=== PATIENT | female | born 1965 | race Two or more races ===

== ENCOUNTER 2021-02-21 08:48 | Emergency (ER) | payer SELFPAY ==
[2021-02-21] MEDS ORDERED: Sodium Chloride 0.9% 2.5 ML Syringe FLUSH PRN (09:04)
[2021-02-21] MEDS ORDERED: Sodium Chloride 0.9% 10 ML Syringe FLUSH PRN (09:04)
[2021-02-21] MEDS ORDERED: Sodium Chloride 0.9% 1,000 ML IV ONE (09:05)
--- NOTE | 2021-02-21 09:25 | EDM.PDOC ---
ED HPI GENERAL MEDICAL PROBLEM - General Chief Complaint: General Stated Complaint: BP LIGHT HEADED Time Seen by Provider: 02/21/21 09:08 - History of Present Illness INITIAL COMMENTS - FREE TEXT/NARRATIVE: History of present illness: [] This patient is a bifrontal headache with radiation down the neck into the shoulders. Its moderately severe in onset was 10 days ago. She has lived in this country for 2 months with her daughter. She is from [place]. The daughter says there is no real change in her social situation stress diet or other habits. The mother says she has had migraines in the past but they usually go away within the first 72 hours. No associated nausea vomiting photophobia. The headache she is having is similar to her usual migraines and has insidious onset and gradual exacerbation. It is actually worse as she goes through the day rather than when she wakens. The moved to [place] was a good one because she finally got her paperwork so that she could move and join her daughter. The patient however is stressed for the last 2 weeks because of things that are happening politically improved and the danger to her family that is back there. Review of systems: As per history of present illness and below otherwise all systems reviewed and negative. Past medical history: As per history of present illness and as reviewed below otherwise noncontributory. Surgical history: As per history of present illness and as reviewed below otherwise noncontributory. Social history: No reported history of drug or alcohol abuse. Family history: As per history of present illness and as reviewed below otherwise noncontributory. Physical exam: Constitutional - well developed, well-nourished and in no acute distress HEENT - normocephalic, no evidence of trauma - external nose and mouth normal - no mass in neck and no JVD - mucosae moist. Neck supple EYES - full EOM, PERRL, no icterus - no evidence of inflammation, injection, or drainage Respiratory - no respiratory distress, equal bilateral expansion, lungs clear to auscultation and no abnormal lung sounds Cardiovascular - Regular Rhythm with S1 and S2 appreciated and no murmur, gallop or rub. GI - abdomen soft without distension or organomegaly - normal bowel sounds - no guard or rebound Musculoskeletal no gross deformity of long bones or joints - no tenderness, swelling or edema Neurologic - Alert and oriented times four - CN II-XII grossly intact - motor sensory and coordination symmetrically normal Psychiatric - appropriate mood and affect with normal thought content Hematologic - No petechiae or purpura - mucosa appropriate color and sclera not pale - normal nail bed color and refill Integument - no rash or evidence of trauma - normal turgor Diagnostics: [] Therapeutics: [] Impression: [] Plan: [] Definitive disposition and diagnosis as appropriate pending reevaluation and review of above. 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: Other POLICE LIAISON OFFICER History: hysterectomy Musculoskeletal History: Reports: None Neurological History: Reports: Migraines Psychiatric History: Reports: None Endocrine/Metabolic History: Reports: None Hematologic History: Reports: None Immunologic History: Reports: None Oncologic (Cancer) History: Reports: None Dermatologic History: Reports: None - Infectious Disease History Infectious Disease History: Reports: None - Past Surgical History Head Surgeries/Procedures: Reports: None Social & Family History - Family History Family Medical History: No Pertinent Family History - Tobacco Use Tobacco Use Status *Q: Never Tobacco User Second Hand Smoke Exposure: No - Caffeine Use Caffeine Use: Reports: None - Recreational Drug Use Recreational Drug Use: No ED ROS GENERAL - Review of Systems Review Of Systems: Comprehensive ROS is negative, except as noted in HPI. ED EXAM, GENERAL - Physical Exam Exam: See Below Free Text/Narrative:: My physical exam is in the HPI #1 Interpretation EKG Interpretation Comments: KG done at 1921 at 9:19 AM sinus rhythm heart rate 81 CO interval 137 QT duration 407 axis -68 there are Q waves in inferior leads and there is a late transition R wave with acute on the initial V1. ST and T are normal. There is no prior for comparison. Impression this is not convincing for any acute isc hemia or injury. Course - Vital Signs Last Recorded V/S: Last Vital Signs Temp 37.5 C 02/21/21 08:52 Pulse 80 02/21/21 10:44 Resp 18 02/21/21 10:44 BP 112/62 02/21/21 10:44 Pulse Ox 97 02/21/21 10:44 - Orders/Labs/Meds Orders: Active Orders 24 hr Category Date Time Status Sodium Chloride 0.9% [Saline Flush] Med 02/21/21 09:04 Active 10 ml FLUSH ASDIRECTED PRN Sodium Chloride 0.9% [Saline Flush] Med 02/21/21 09:04 Active 2.5 ml FLUSH ASDIRECTED PRN Saline Lock Insert [OM.PC] Stat Oth 02/21/21 09:04 Ordered Medication Orders Sodium Chloride (Sodium Chloride 0.9% 10 Ml Syringe) 10 ml FLUSH ASDIRECTED PRN PRN Reason: Keep Vein Open Last Admin: 02/21/21 09:10 Dose: 10 ml Documented by: MIKAL Sodium Chloride (Sodium Chloride 0.9% 2.5 Ml Syringe) 2.5 ml FLUSH ASDIRECTED PRN PRN Reason: Keep Vein Open Last Admin: 02/21/21 09:09 Dose: 2.5 ml Documented by: MIKAL Labs: Laboratory Tests 02/21/21 02/21/21 02/21/21 Range/Units 09:04 09:04 09:15 WBC 5.55 (4.0-11.0) K/uL RBC 4.52 (4.30-5.90) M/uL Hgb 14.0 (12.0-16.0) g/dL Hct 41.1 (36.0-46.0) % MCV 90.9 (80.0-98.0) fL MCH 31.0 (27.0-32.0) pg MCHC 34.1 (31.0-37.0) g/dL RDW Std Deviation 43.1 (28.0-62.0) fl RDW Coeff of Alem 13 (11.0-15.0) % Plt Count 205 (150-400) K/uL MPV 10.30 (7.40-12.00) fL Neut % (Auto) 58.8 (48.0-80.0) % Lymph % (Auto) 27.0 (16.0-40.0) % [place] % (Auto) 13.3 (0.0-15.0) % Eos % (Auto) 0.4 (0.0-7.0) % Baso % (Auto) 0.5 (0.0-1.5) % Neut # (Auto) 3.3 (1.4-5.7) K/uL Lymph # (Auto) 1.5 (0.6-2.4) K/uL [place] # (Auto) 0.7 (0.0-0.8) K/uL Eos # (Auto) 0.0 (0.0-0.7) K/uL Baso # (Auto) 0.0 (0.0-0.1) K/uL Nucleated RBC % 0.0 /100WBC Nucleated RBCs # 0 K/uL Sodium 133 L (136-145) mmol/L Potassium 3.8 (3.5-5.1) mmol/L Chloride 100 (98-107) mmol/L Carbon Dioxide 28.5 (21.0-32.0) mmol/L BUN 11 (7.0-18.0) mg/dL Creatinine 0.8 (0.6-1.0) mg/dL Est Cr Clr Drug Dosing 57.07 mL/min Estimated GFR (MDRD) > 60.0 ml/min Glucose 93 (74-106) mg/dL Calcium 8.6 (8.5-10.1) mg/dL Total Bilirubin 0.9 (0.2-1.0) mg/dL AST 31 (15-37) IU/L ALT 37 (14-63) IU/L Alkaline Phosphatase 100 (46-116) U/L Troponin I < 0.050 (0.000-0.056) ng/mL Total Protein 7.6 (6.4-8.2) g/dL Albumin 3.9 (3.4-5.0) g/dL Globulin 3.7 (2.6-4.0) g/dL Albumin/Globulin Ratio 1.1 (0.9-1.6) Urine Color YELLOW Urine Appearance CLEAR Urine pH 5.5 (5.0-8.0) Ur Specific [place] <= 1.005 (1.001-1.035) Urine Protein NEGATIVE (NEGATIVE) mg/dL Urine Glucose (UA) NEGATIVE (NEGATIVE) mg/dL Urine Ketones NEGATIVE (NEGATIVE) mg/dL Urine Occult Blood MODERATE H (NEGATIVE) Urine Nitrite NEGATIVE (NEGATIVE) Urine Bilirubin NEGATIVE (NEGATIVE) Urine Urobilinogen 0.2 (<2.0) EU/dL Ur Leukocyte Esterase NEGATIVE (NEGATIVE) Urine RBC 3-5 (0-2/HPF) Urine WBC 0-1 (0-5/HPF) Ur Epithelial Cells RARE (NONE-FEW) Urine Bacteria FEW (NEGATIVE) Urine Mucus LIGHT (NONE-MOD) Meds: Medications Generic Name Dose Route Start Last Admin Trade Name Freq PRN Reason Stop Dose Admin Sodium Chloride 10 ml 02/21/21 09:04 02/21/21 09:10 Sodium Chloride 0.9% 10 Ml Syringe FLUSH 10 ml ASDIRECTED PRN Administration Keep Vein Open Sodium Chloride 2.5 ml 02/21/21 09:04 02/21/21 09:09 Sodium Chloride 0.9% 2.5 Ml Syringe FLUSH 2.5 ml ASDIRECTED PRN Administration Keep Vein Open Discontinued Medications Generic Name Dose Route Start Last Admin Trade Name Freq PRN Reason Stop Dose Admin Sodium Chloride 1,000 mls @ 1,000 mls/hr 02/21/21 09:05 02/21/21 09:09 Normal Saline IV 02/21/21 10:04 1,000 mls/hr .Bolus ONE Administration Ketorolac Tromethamine 15 mg 02/21/21 09:49 02/21/21 10:07 Ketorolac 30 Mg/Ml Sdv IVPUSH 02/21/21 09:50 15 mg ONETIME ONE Administration Lorazepam 0.5 mg 02/21/21 09:49 02/21/21 10:07 Lorazepam 2 Mg/Ml Sdv IVPUSH 02/21/21 09:50 0.5 mg ONETIME ONE Administration Departure - Departure Time of Disposition: 10:46 Disposition: Home, Self-Care 01 Condition: Good Clinical Impression: Headache - Discharge Information Prescriptions: LORazepam [Ativan] 0.5 mg PO TID PRN #20 tab PRN Reason: Headache Instructions: Chronic Migraine Headache, [id number] Forms: ED Department Discharge Additional Instructions: Naproxen or ibuprofen are recommended for treatment of pain-Excedrin could be tried also because it has caffeine which can be helpful with migraine specifically-tension and muscle contraction are best treated by relieving stress-warm compress or massage may be helpful. The massage and compress should be at the base of the neck. Her sodium was a little low and she should preferentially take soup, Gatorade, juices rather than just free water. Return if worse Tommy Hernandez [facility] [address] [place] [address] [facility] [address] [place] [address] The following information is given to patients seen in the emergency department who are being discharged to home. This information is to outline your options for follow-up care. We provide all patients seen in our emergency department with a follow-up referral. The need for follow-up, as well as the timing and circumstances, are variable depending upon the specifics of your emergency department visit. If you don't have a primary care physician on staff, we will provide you with a referral. We always advise you to contact your personal physician following an emergency department visit to inform them of the circumstance of the visit and for follow-up with them and/or the need for any referrals to a consulting specialist. The emergency department will also refer you to a specialist when appropriate. This referral assures that you have the opportunity for follow-up care with a specialist. All of these measure are taken in an effort to provide you with optimal care, which includes your follow-up. Under all circumstances we always encourage you to contact your private physician who remains a resource for coordinating your care. When calling for follow-up care, please make the office aware that this follow-up is from your recent emergency room visit. If for any reason you are refused follow-up, please contact the [facility] Emergency Department at and asked to speak to the emergency department charge nurse. Sepsis Event Note (ED) - Evaluation Sepsis Screening Result: No Definite Risk - Focused Exam Vital Signs: Vital Signs Temp Pulse Resp BP Pulse Ox 02/21/21 10:44 80 18 112/62 97 02/21/21 10:15 87 18 111/57 L 98 02/21/21 09:24 88 18 107/67 97 02/21/21 08:52 37.5 C 92 20 111/57 L 96 - My Orders Last 24 Hours: My Active Orders 02/21/21 09:04 Sodium Chloride 0.9% [Saline Flush] 10 ml FLUSH ASDIRECTED PRN Sodium Chloride 0.9% [Saline Flush] 2.5 ml FLUSH ASDIRECTED PRN Saline Lock Insert [OM.PC] Stat - Assessment/Plan Last 24 Hours: My Active Orders 02/21/21 09:04 Sodium Chloride 0.9% [Saline Flush] 10 ml FLUSH ASDIRECTED PRN Sodium Chloride 0.9% [Saline Flush] 2.5 ml FLUSH ASDIRECTED PRN Saline Lock Insert [OM.PC] Stat
[2021-02-21 09:40] LABS: BLOOD UREA NITROGEN,BUN 11 mg/dL (7.0-18.0); CARBON DIOXIDE,CO2 28.5 mmol/L (21.0-32.0); CHLORIDE,CL 100 mmol/L (98-107); GLUCOSE RANDOM 93 mg/dL (74-106); POTASSIUM,K 3.8 mmol/L (3.5-5.1); SODIUM,NA 133 mmol/L (136-145)
[2021-02-21] MEDS ORDERED: LORazepam 2 MG/ML SDV IVPUSH ONE (09:49)
[2021-02-21] MEDS ORDERED: Ketorolac 30 MG/ML SDV IVPUSH ONE (09:49)
== END 2021-02-21 11:01 | disposition home or self-care (01) ==
LOC: MW.ED 08:48
DX: R51.9 Headache, unspecified (principal)
CPT/HCPCS: 36415; 80053; 81001; 84484; 85025; 93005; 96374; 96375; 99284; J1885; J2060; J7030